=== PATIENT | male | born 1980 | race Hispanic/Latino ===

== ENCOUNTER 2022-02-26 20:47 | Emergency (ER) | payer BC, OTHER ==
[~2022-02-26] VITALS: Ht 177.8 cm; Wt 98.4 kg
[~2022-02-26 20:47] MED LIST: FENO145T PO; GLYB5TAB9 PO; LISI5TAB21 PO; Metformin Hcl PO; NIAC500SR PO
[2022-02-26 21:18] LABS: BASOPHILS % (AUTO) 0.1 % (0.0-5.0); EOSINOPHILS % (AUTO) 0.4 % (0.0-8.0); HEMATOCRIT 40.5 % (42-54); LYMPHOCYTES % (AUTO) 9.1 % (21.0-51.0); MEAN CORPUSCULAR HEMOGLOBIN 27.2 pg (27.0-33.0); MEAN CORPUSCULAR HGB CONC 33.8 g/dL (32.0-36.0); MEAN CORPUSCULAR VOLUME 80.4 fL (79-99); NEUTROPHILS % (AUTO) 83.9 % (40.0-77.0); PLATELET COUNT (AUTO) 267 K/uL (130-400); RED BLOOD CELL COUNT(AUTO) 5.04 MIL/uL (4.50-6.20); RED CELL DISTRIBUTION WIDTH 12.9 % (11.0-15.5); WHITE BLOOD COUNT (AUTO) 13.9 K/uL (4.8-10.8)
[2022-02-26 21:19] LABS: APPEARANCE,URINE CLEAR (CLEAR); BILIRUBIN,URINE SMALL (NEGATIVE); COLOR,URINE DARK YELLOW (YELLOW); GLUCOSE, URINE (UA) NEGATIVE (NEGATIVE); KETONES,URINE 5 mg/dL (NEGATIVE); LEUKOCYTE ESTERASE ,URINE NEGATIVE (NEGATIVE); NITRATE,URINE NEGATIVE (NEGATIVE); OCCULT BLOOD,URINE NEGATIVE (NEGATIVE); PH,URINE 5.5 (5.0-8.0); PROTEIN,URINE 100 mg/dL (NEGATIVE)
[2022-02-26 21:29] LABS: POTASSIUM 3.5 mmol/L (3.5-5.1)
[2022-02-26 21:30] LABS: BACTERIA,URINE Few /HPF (None Seen); MUCUS,URINE Moderate LPF (None Seen); SQUAMOUS EPITHELIAL CELL,UR Few /HPF (0-2)
[2022-02-26] MEDS ORDERED: ONDANSETRON 4MG INJ IVP ONE (21:30)
[2022-02-26] MEDS ORDERED: MORPHINE 2 MG SYG IVP ONE (21:30)
[2022-02-26 21:39] LABS: ALBUMIN 3.5 g/dL (3.5-5.0); TOTAL PROTEIN, SERUM 8.6 g/dL (6.0-8.3)
[2022-02-26] MEDS ORDERED: 0.9%NACL 1000ML 1,000 ML IV SCH (22:00)
[2022-02-26] MEDS ORDERED: CYCL10TA16 PO (22:05)
[2022-02-26] MEDS ORDERED: TRAM1TAB2 PO (22:05)
[2022-02-26 22:17] VITALS: BP 131/81
== END 2022-02-26 22:29 | disposition home or self-care (01) ==
LOC: EDH 20:47
DX: E27.49 Other adrenocortical insufficiency (principal); J98.11 Atelectasis; E87.1 Hypo-osmolality and hyponatremia; E11.9 Type 2 diabetes mellitus without complications; E78.00 Pure hypercholesterolemia, unspecified; I10 Essential (primary) hypertension; E66.9 Obesity, unspecified; Z68.31 Body mass index [BMI] 31.0-31.9, adult; Z79.899 Other long term (current) drug therapy; Z79.84 Long term (current) use of oral hypoglycemic drugs
CPT/HCPCS: 99284; 74176; 96374; 96361; 96375; 84484; 80053; 83690; 85025; 86140; 81001; 36415; J7030; J2405